=== PATIENT | male | born 1970 | race Caucasian/White ===

== ENCOUNTER 2021-01-18 15:12 | Emergency (ER) | payer OTHER, SELFPAY ==
[2021-01-18 15:13] VITALS: BP 123/83; PULSE 78; RESP 20; TEMP 36.7; O2SAT 99
--- NOTE | 2021-01-18 16:24 | ED.WOUNDLAC ---
HPI - Wound/Laceration General Chief Complaint: Wound/Laceration Stated Complaint: SPIDER BITE Time Seen by Provider: 01/18/21 15:31 History of Present Illness HPI narrative: Patient is a 50-year-old male who presents ER with concerns for a bug bite to his right elbow. Over the last 2 days he has had area at the elbow where he thought he had been bit and he also thought maybe he had something in his arm so he tried to take it out. Since then he has developed redness around it as well as warmth and tenderness. He has some lymphangitic streaking towards axilla. No fevers or chills or sweats. He maintains range of motion. He did not actually see himself get bitten. The central area of the infection is bright white and has 2 areas of bruising not could be from bites or from him picking at his arm. Related Data Allergies Allergy/AdvReac Type Severity Reaction Status Date / Time No Known Allergies Allergy Verified 10/19/14 15:04 Review of Systems Constitutional: Constitutional: Denies chills, Denies fever(s) and Denies weakness Musculoskeletal: Musculoskeletal: Denies back pain, Denies joint swelling and Denies muscle cramps Integumentary/Breasts: Skin/Breast: Reports erythema, Denies rash and Denies skin ulcer Comments: Bruising PMFSH Past Medical History Medical History (Updated 01/18/21 @ 16:31 by Prince Shahid MD) Hyperlipidemia Surgical History Surgical History (Updated 01/18/21 @ 16:28 by Prince Shahid MD) History of testicular surgery Social History Social History Gender identity (if verbalized by the patient): Male Exam Narrative: GENERAL: Well-appearing, well-nourished, and in no acute distress. HEAD: Normocephalic, atraumatic. CHEST: Clear to auscultation. No respiratory distress. HEART: Regular rate and rhythm. Normal peripheral pulses. ABDOMEN: Soft, nontender, nondistended. EXTREMITIES: Normal range of motion. No edema. SKIN: Warm, dry. 1 cm diameter area of whiteness to the medial elbow with central bruising to areas that could represent bite. Cellulitis surrounding this with lymphangitic streaking towards the axilla. Mild tenderness palpation. NEURO: Alert and oriented x3. PSYCH: Normal mood and affect. Course Course Emergency Course: Margins of infection tila. Patient be started on Bactrim. Discussed follow-up precautions and patient verbalized understanding Vital Signs Vital signs: Vital Signs Temperature 98.1 F 01/18/21 15:13 Pulse Rate 78 01/18/21 15:13 Respiratory Rate 20 01/18/21 15:13 Blood Pressure 123/83 01/18/21 15:13 Pulse Oximetry 99 01/18/21 15:13 Temperature 98.1 F 01/18/21 15:13 Pulse Rate 78 01/18/21 15:13 Respiratory Rate 20 01/18/21 15:13 Blood Pressure 123/83 01/18/21 15:13 Pulse Oximetry 99 01/18/21 15:13 Discharge Plan Discharge Clinical Impression: Cellulitis Patient Disposition: Home, Self-Care Condition: Stable Instructions: Cellulitis (ED) Additional Instructions: Return to the ER if you have fever over 100.4 ?F, you cannot keep down food or water, you have additional concerns. Prescriptions: New sulfamethoxazole-trimethoprim [Bactrim DS] 800-160 mg tablet 1 tablet PO Q12H Qty: 20 RF: 0 Follow-up/Referrals: Hardik,GRABIEL Gutiérrez [Primary Care Provider] - 1 Week
== END 2021-01-18 16:46 | disposition home or self-care (01) ==
PROVIDERS: Emergency Provider Emergency Medicine; PCP Physician Assistant
DX: L03.113 Cellulitis of right upper limb (principal); E78.5 Hyperlipidemia, unspecified
CPT/HCPCS: 99283